=== PATIENT | female | born 1995 | race Caucasian/White ===

== ENCOUNTER 2020-06-28 10:14 | Outpatient (REF) | payer OTHER, SELFPAY ==
[2020-06-28 12:55] LABS: Syphilis Screen Nonreactive (Nonreactive)
[2020-06-28 13:12] LABS: CT PCR NOT DETECTED (Not Detect.); NG PCR NOT DETECTED (Not Detect.)
[2020-06-29 04:26] LABS: HIV AB/AG Nonreactive (Nonreactive); HIV Num 1 0.05 S/CO (0.00-0.99)
[2020-06-29 04:36] LABS: HBc Num1 0.06 S/CO (0.00-0.79); Hepatitis B Core Antibody Nonreactive (Nonreactive); ~HepC Num1 0.06 S/CO (0.00-0.79); ~Hepatitis C Antibody Nonreactive (Nonreactive)
[2020-06-30 15:51] LABS: Prolactin 54.5 ng/mL
[2020-06-30 17:27] LABS: DHEA Sulfate 180 mcg/dL (18-391)
[2020-07-03 11:43] LABS: Testosterone, Free 6.1 pg/mL (0.1-6.4); Testosterone, Total 66 ng/dL (2-45)
== END 2020-06-28 10:15 | disposition home or self-care (01) ==
LOC: HO.LAB 10:14
PROVIDERS: PCP Internal Medicine; Visit Provider Advanced Practice Midwife
DX: Z01.419 Encounter for gynecological examination (general) (routine) without abnormal findings (principal); L68.0 Hirsutism; N92.6 Irregular menstruation, unspecified; Z20.2 Contact with and (suspected) exposure to infections with a predominantly sexual mode of transmission
CPT/HCPCS: 36415; 82627; 83498; 84146; 84402; 84403; 84443; 86704; 86780; 86803; 87389; 87491; 87591

== ENCOUNTER 2020-07-03 17:36 | Emergency (ER) | payer OTHER, SELFPAY ==
--- NOTE | ~2020-07-03 | US_ITS ---
EXAMINATION: US OBSTETRICAL ULTRASOUND US OB TRANSVAGINAL, US OB <= 14 WEEKS FETUS, US APPENDIX CLINICAL INFORMATION: Cramping, spotting. Right upper quadrant pain. COMPARISON: None. LMP: Unknown. Gestational age by maternal dates is unknown. Estimated date of delivery by maternal dates is unknown. TECHNIQUE: Ultrasound of the maternal pelvis is performed using transabdominal and transvaginal transducers. Transvaginal imaging is performed due to inadequate visualization transabdominally. M-mode Doppler is also performed. Multiple transverse and longitudinal transabdominal sonograms of the right lower quadrant of the abdomen were obtained. FINDINGS: RIGHT LOWER QUADRANT ABDOMINAL ULTRASOUND: The appendix was not identified. No free fluid or fluid collection. No dilated loops of bowel. Normal peristalsing small bowel seen. OBSTETRICAL SONOGRAM There is an intrauterine containing a yolk sac but no embryo. Based on the mean sac diameter of 0.95 cm, the sonographic age is 5 weeks 4 days. The corresponding sonographic JEROME was not recorded MATERNAL ADNEXA: The right maternal ovary measures 3.2 x 2.4 x 2.5 cm. The right ovary is normal in appearance. The left maternal ovary measures 2.8 x 2.2 x 2.2 cm. The left ovary is normal in appearance There is no significant maternal adnexal mass. No maternal pelvic ascites. US/US OB <= 14 weeks fetus IMPRESSION: 1. The appendix is not identified. Appendicitis can neither be confirmed nor excluded. 2. Single intrauterine gestation with ultrasound gestational age of 5 weeks 4 days +/- 4 days. No embryo is seen. Consider short interval follow-up to confirm viability. 3. No maternal adnexal mass or pelvic ascites.
--- NOTE | ~2020-07-03 | US_ITS ---
EXAMINATION: US OBSTETRICAL ULTRASOUND US OB TRANSVAGINAL, US OB <= 14 WEEKS FETUS, US APPENDIX CLINICAL INFORMATION: Cramping, spotting. Right upper quadrant pain. COMPARISON: None. LMP: Unknown. Gestational age by maternal dates is unknown. Estimated date of delivery by maternal dates is unknown. TECHNIQUE: Ultrasound of the maternal pelvis is performed using transabdominal and transvaginal transducers. Transvaginal imaging is performed due to inadequate visualization transabdominally. M-mode Doppler is also performed. Multiple transverse and longitudinal transabdominal sonograms of the right lower quadrant of the abdomen were obtained. FINDINGS: RIGHT LOWER QUADRANT ABDOMINAL ULTRASOUND: The appendix was not identified. No free fluid or fluid collection. No dilated loops of bowel. Normal peristalsing small bowel seen. OBSTETRICAL SONOGRAM There is an intrauterine containing a yolk sac but no embryo. Based on the mean sac diameter of 0.95 cm, the sonographic age is 5 weeks 4 days. The corresponding sonographic JEROME was not recorded MATERNAL ADNEXA: The right maternal ovary measures 3.2 x 2.4 x 2.5 cm. The right ovary is normal in appearance. The left maternal ovary measures 2.8 x 2.2 x 2.2 cm. The left ovary is normal in appearance There is no significant maternal adnexal mass. No maternal pelvic ascites. US/US appendix IMPRESSION: 1. The appendix is not identified. Appendicitis can neither be confirmed nor excluded. 2. Single intrauterine gestation with ultrasound gestational age of 5 weeks 4 days +/- 4 days. No embryo is seen. Consider short interval follow-up to confirm viability. 3. No maternal adnexal mass or pelvic ascites.
--- NOTE | ~2020-07-03 | US_ITS ---
EXAMINATION: US OBSTETRICAL ULTRASOUND US OB TRANSVAGINAL, US OB <= 14 WEEKS FETUS, US APPENDIX CLINICAL INFORMATION: Cramping, spotting. Right upper quadrant pain. COMPARISON: None. LMP: Unknown. Gestational age by maternal dates is unknown. Estimated date of delivery by maternal dates is unknown. TECHNIQUE: Ultrasound of the maternal pelvis is performed using transabdominal and transvaginal transducers. Transvaginal imaging is performed due to inadequate visualization transabdominally. M-mode Doppler is also performed. Multiple transverse and longitudinal transabdominal sonograms of the right lower quadrant of the abdomen were obtained. FINDINGS: RIGHT LOWER QUADRANT ABDOMINAL ULTRASOUND: The appendix was not identified. No free fluid or fluid collection. No dilated loops of bowel. Normal peristalsing small bowel seen. OBSTETRICAL SONOGRAM There is an intrauterine containing a yolk sac but no embryo. Based on the mean sac diameter of 0.95 cm, the sonographic age is 5 weeks 4 days. The corresponding sonographic JEROME was not recorded MATERNAL ADNEXA: The right maternal ovary measures 3.2 x 2.4 x 2.5 cm. The right ovary is normal in appearance. The left maternal ovary measures 2.8 x 2.2 x 2.2 cm. The left ovary is normal in appearance There is no significant maternal adnexal mass. No maternal pelvic ascites. US/US OB transvaginal IMPRESSION: 1. The appendix is not identified. Appendicitis can neither be confirmed nor excluded. 2. Single intrauterine gestation with ultrasound gestational age of 5 weeks 4 days +/- 4 days. No embryo is seen. Consider short interval follow-up to confirm viability. 3. No maternal adnexal mass or pelvic ascites.
[2020-07-03 17:39] VITALS: BP 136/77; PULSE 79; RESP 18; TEMP 36.8; O2SAT 98; BMI 27.9
[2020-07-03 19:53] LABS: MANUAL DIFF FLAG NO
[2020-07-03 19:54] LABS: Basophils Percent Auto 0.3 % (0-2); Eosinophils Percent Auto 0.3 % (0-4); Hematocrit 39.8 % (37-47); Hemoglobin 13.2 g/dl (12.0-16.0); Imm Gran Abs Auto 0.02 X10*3/uL (0.00-0.03); Imm Gran Pct Auto 0.2 % (0.0-0.4); Lymphocytes Absolute Auto 1.6 X10*3/uL (1.2-4.9); Mean Corpuscular HGB Conc 33.2 g/dl (31.0-35.0); Mean Corpuscular Hemoglobin 29.9 pg (27.0-33.0); Monocytes Absolute Auto 0.4 X10*3/uL (0.1-1.2); Monocytes Percent Auto 3.9 % (2-11); Neutrophils Absolute Auto 7.9 X10*3/uL (2.0-8.3); Neutrophils Percent Auto 79.3 % (45-73); Platelet Count 244 X10*3/uL (160-400); Red Blood Count 4.42 X10*6/uL (4.20-5.50); Red Cell Distribution Width 12.7 % (11.0-16.0)
[2020-07-03 20:09] LABS: Glucose Urine UA NEG (NEG); Leukocyte Esterase Urine NEG (NEG); Nitrite Urine NEG (NEG); Specific Gravity - Urine 1.025 (1.005-1.025); Urine Blood TRACE (NEG); Urine Ketones 5 MG/DL (NEG); Urine Protein NEG (NEG-TRACE)
[2020-07-03 20:10] LABS: Appearance Urine CLEAR; Color Urine YELLOW
[2020-07-03 20:11] LABS: UPreg QC Valid YES; Urine Pregnancy POSITIVE (NEGATIVE)
[2020-07-03 20:16] LABS: Alanine Aminotransferase 10 U/L (0-31); Albumin Level 4.1 g/dL (3.5-5.0); Alkaline Phosphatase 52 U/L (39-117); Anion Gap 13 (12-20); Aspartate Amino Transferase 11 U/L (5-31); Bilirubin Total 0.6 mg/dL (0.0-1.0); Blood Urea Nitrogen 7 mg/dL (9-16); Calcium 8.6 mg/dL (8.4-10.2); Carbon Dioxide 21 mmol/L (22-29); Chloride 106 mmol/L (96-108); Creatinine Clr Calc Pharmacy 156.7; Estimated Glomerular Filt Rate > 60; Glucose Random 93 mg/dL (60-115); Potassium 3.9 mmol/L (3.3-5.1); Sodium 136 mmol/L (135-145); Total Protein 6.7 g/dL (6.5-8.0)
--- NOTE | 2020-07-03 20:21 | ED.GENADULT ---
HPI - General Adult General Chief complaint: Abdominal Pain Stated complaint: spotting Time Seen by Provider: 07/03/20 20:02 Source: patient Mode of arrival: ambulatory Limitations: no limitations History of Present Illness HPI narrative: Patient comes to emergency room complaining of vaginal spotting, right lower quadrant pain, new diagnosis of . Patient states that initially she noticed spotting couple of days ago, yesterday she started having suprapubic and right lower quadrant pain/cramping, diarrhea, an episode of vomiting. Today patient went to Urgent Care, she was informed that she is . Due to the spotting, she was instructed to come to the emergency room. Patient states she feels a constant discomfort in the right lower quadrant Related Data Previous Rx's Medication Instructions Recorded prenat.vits,missy,wza-uhuw-drice 1 tab PO DAILY #90 tab 07/03/20 Allergies Allergy/AdvReac Type Severity Reaction Status Date / Time No Known Allergies Allergy Verified 07/03/20 17:38 [No Known Allergies*] [facility] [place] Family History Family History Maternal Grandmother Ovarian cancer Family/Other Breast cancer Social History Social History Alcohol intake: never Smoking Status: Never smoker Advance Directives: No Advance Directives Information Provided: Yes Physical Exam Vital Signs: Vital Signs: Last Vital Signs Temp 98.2 F 07/03/20 17:39 Pulse 79 07/03/20 17:39 Resp 18 07/03/20 17:39 BP 136/77 07/03/20 17:39 Pulse Ox 98 07/03/20 17:39 Body Mass Index 27.9 Course Course Course Narrative: I discussed the ultrasound with the patient, she will need a repeat ultrasound, at this time, likely due to early maternal dates. The appendix was not visualized. Prior to arrival, I discussed with the patient that if she has any worsening right lower quadrant pain, any new symptoms, she needs to return to the emergency room, appendicitis is not excluded. However, on physical exam prior to discharge patient feels better, no longer having significant pain in the right lower quadrant, white blood cell count within normal limits. Patient is being referred to OBGYN, and is being started on vitamins. Medical Decision Making Lab Data Result diagrams: 07/03/20 22:18 07/03/20 19:49 Labs: Lab Results 07/03/20 07/03/20 07/03/20 Range/Units 19:49 19:49 19:49 WBC 10.0 (4.8-10.8) X10*3/uL RBC 4.42 (4.20-5.50) X10*6/uL Hgb 13.2 (12.0-16.0) g/dl Hct 39.8 (37-47) % MCV 90.0 (80-98) fL MCH 29.9 (27.0-33.0) pg MCHC 33.2 (31.0-35.0) g/dl RDW 12.7 (11.0-16.0) % Plt Count 244 (160-400) X10*3/uL MPV 10.0 (9.4-12.3) fL Immature Gran % (Auto) 0.2 (0.0-0.4) % Neut % (Auto) 79.3 H (45-73) % Lymph % (Auto) 16.0 L (20-40) % Miner % (Auto) 3.9 (2-11) % Eos % (Auto) 0.3 (0-4) % Baso % (Auto) 0.3 (0-2) % Lymph # (Auto) 1.6 (1.2-4.9) X10*3/uL Miner # (Auto) 0.4 (0.1-1.2) X10*3/uL Eos # (Auto) 0.0 (0.0-0.4) X10*3/uL Baso # (Auto) 0.0 (0.0-0.2) X10*3/uL Abs Immat Gran (auto) 0.02 (0.00-0.03) X10*3/uL Absolute Neuts (auto) 7.9 (2.0-8.3) X10*3/uL Absolute Nucleated RBC 0.000 (0.0-0.012) X10*3/uL Nucleated RBC % (auto) 0.0 (0.0-0.2) /100WBC Hold Blue Top SEE NOTE Sodium 136 (135-145) mmol/L Potassium 3.9 (3.3-5.1) mmol/L Chloride 106 (96-108) mmol/L Carbon Dioxide 21 L (22-29) mmol/L Anion Gap 13 (12-20) BUN 7 L (9-16) mg/dL Creatinine 0.57 (0.5-1.4) mg/dL Estim Creat Clear Calc 156.7 Estimated GFR > 60 Random Glucose 93 (60-115) mg/dL Calcium 8.6 (8.4-10.2) mg/dL Total Bilirubin 0.6 (0.0-1.0) mg/dL Direct Bilirubin 0.2 (0.0-0.5) mg/dL AST 11 (5-31) U/L ALT 10 (0-31) U/L Alkaline Phosphatase 52 (39-117) U/L Total Protein 6.7 (6.5-8.0) g/dL Albumin 4.1 (3.5-5.0) g/dL Beta HCG, Quant 8999 mIU/mL Urine Color Urine Appearance Urine pH (5.0-8.0) Ur Specific [place] (1.005-1.025) Urine Protein (NEG-TRACE) MG/DL Urine Glucose (UA) (NEG) MG/DL Urine Ketones (NEG) MG/DL Urine Blood (NEG) Urine Nitrite (NEG) Ur Leukocyte Esterase (NEG) Urine RBC (0) /HPF Urine WBC (0-4) /HPF Ur Squamous Epith Cells /LPF Urine Bacteria /LPF Urine Mucus /LPF Urine Test (NEGATIVE) Blood Type 07/03/20 07/03/20 07/03/20 Range/Units 19:55 19:55 22:18 WBC (4.8-10.8) X10*3/uL RBC (4.20-5.50) X10*6/uL Hgb (12.0-16.0) g/dl Hct (37-47) % MCV (80-98) fL MCH (27.0-33.0) pg MCHC (31.0-35.0) g/dl RDW (11.0-16.0) % Plt Count (160-400) X10*3/uL MPV (9.4-12.3) fL Immature Gran % (Auto) (0.0-0.4) % Neut % (Auto) (45-73) % Lymph % (Auto) (20-40) % Miner % (Auto) (2-11) % Eos % (Auto) (0-4) % Baso % (Auto) (0-2) % Lymph # (Auto) (1.2-4.9) X10*3/uL Miner # (Auto) (0.1-1.2) X10*3/uL Eos # (Auto) (0.0-0.4) X10*3/uL Baso # (Auto) (0.0-0.2) X10*3/uL Abs Immat Gran (auto) (0.00-0.03) X10*3/uL Absolute Neuts (auto) (2.0-8.3) X10*3/uL Absolute Nucleated RBC (0.0-0.012) X10*3/uL Nucleated RBC % (auto) (0.0-0.2) /100WBC Hold Blue Top Sodium Cancelled (135-145) mmol/L Potassium Cancelled (3.3-5.1) mmol/L Chloride Cancelled (96-108) mmol/L Carbon Dioxide Cancelled (22-29) mmol/L Anion Gap Cancelled (12-20) BUN Cancelled (9-16) mg/dL Creatinine Cancelled (0.5-1.4) mg/dL Estim Creat Clear Calc Cancelled Estimated GFR Cancelled Random Glucose Cancelled (60-115) mg/dL Calcium Cancelled (8.4-10.2) mg/dL Total Bilirubin Cancelled (0.0-1.0) mg/dL Direct Bilirubin Cancelled (0.0-0.5) mg/dL AST Cancelled (5-31) U/L ALT Cancelled (0-31) U/L Alkaline Phosphatase Cancelled (39-117) U/L Total Protein Cancelled (6.5-8.0) g/dL Albumin Cancelled (3.5-5.0) g/dL Beta HCG, Quant Cancelled mIU/mL Urine Color YELLOW Urine Appearance CLEAR Urine pH 6.0 (5.0-8.0) Ur Specific [place] 1.025 (1.005-1.025) Urine Protein NEG (NEG-TRACE) MG/DL Urine Glucose (UA) NEG (NEG) MG/DL Urine Ketones 5 (NEG) MG/DL Urine Blood TRACE (NEG) Urine Nitrite NEG (NEG) Ur Leukocyte Esterase NEG (NEG) Urine RBC 0-2 (0) /HPF Urine WBC 1-4 (0-4) /HPF Ur Squamous Epith Cells TRACE /LPF Urine Bacteria NONE /LPF Urine Mucus 1+ /LPF Urine Test POSITIVE H (NEGATIVE) Blood Type 07/03/20 07/03/20 Range/Units 22:18 22:18 WBC 10.0 (4.8-10.8) X10*3/uL RBC 4.39 (4.20-5.50) X10*6/uL Hgb 13.1 (12.0-16.0) g/dl Hct 39.3 (37-47) % MCV 89.5 (80-98) fL MCH 29.8 (27.0-33.0) pg MCHC 33.3 (31.0-35.0) g/dl RDW 12.7 (11.0-16.0) % Plt Count 248 (160-400) X10*3/uL MPV 10.1 (9.4-12.3) fL Immature Gran % (Auto) 0.3 (0.0-0.4) % Neut % (Auto) 76.6 H (45-73) % Lymph % (Auto) 18.0 L (20-40) % Miner % (Auto) 4.3 (2-11) % Eos % (Auto) 0.4 (0-4) % Baso % (Auto) 0.4 (0-2) % Lymph # (Auto) 1.8 (1.2-4.9) X10*3/uL Miner # (Auto) 0.4 (0.1-1.2) X10*3/uL Eos # (Auto) 0.0 (0.0-0.4) X10*3/uL Baso # (Auto) 0.0 (0.0-0.2) X10*3/uL Abs Immat Gran (auto) 0.03 (0.00-0.03) X10*3/uL Absolute Neuts (auto) 7.6 (2.0-8.3) X10*3/uL Absolute Nucleated RBC 0.000 (0.0-0.012) X10*3/uL Nucleated RBC % (auto) 0.0 (0.0-0.2) /100WBC Hold Blue Top Sodium (135-145) mmol/L Potassium (3.3-5.1) mmol/L Chloride (96-108) mmol/L Carbon Dioxide (22-29) mmol/L Anion Gap (12-20) BUN (9-16) mg/dL Creatinine (0.5-1.4) mg/dL Estim Creat Clear Calc Estimated GFR Random Glucose (60-115) mg/dL Calcium (8.4-10.2) mg/dL Total Bilirubin (0.0-1.0) mg/dL Direct Bilirubin (0.0-0.5) mg/dL AST (5-31) U/L ALT (0-31) U/L Alkaline Phosphatase (39-117) U/L Total Protein (6.5-8.0) g/dL Albumin (3.5-5.0) g/dL Beta HCG, Quant mIU/mL Urine Color Urine Appearance Urine pH (5.0-8.0) Ur Specific [place] (1.005-1.025) Urine Protein (NEG-TRACE) MG/DL Urine Glucose (UA) (NEG) MG/DL Urine Ketones (NEG) MG/DL Urine Blood (NEG) Urine Nitrite (NEG) Ur Leukocyte Esterase (NEG) Urine RBC (0) /HPF Urine WBC (0-4) /HPF Ur Squamous Epith Cells /LPF Urine Bacteria /LPF Urine Mucus /LPF Urine Test (NEGATIVE) Blood Type O Positive Imaging Data US - abdomen: Radiologist's impression: IMPRESSION: 1. The appendix is not identified. Appendicitis can neither be confirmed nor excluded. 2. Single intrauterine gestation with ultrasound gestational age of 5 weeks 4 days +/- 4 days. No embryo is seen. Consider short interval follow-up to confirm viability. 3. No maternal adnexal mass or pelvic ascites. Discharge Plan Discharge Clinical Impression: Qualifiers: Weeks of gestation: less than 8 weeks Qualified Code(s): Z3A.01 - Less than 8 weeks gestation of Patient Disposition: Home, Self-Care Instructions: Abdominal Pain in (ED) Additional Instructions: If you have any worsening abdominal pain, please return to the emergency room. Please follow-up with your primary care physician tomorrow. If you have any worsening or new symptoms, please return to the emergency room or call 911 Prescriptions: New prenat.vits,missy,zpu-jeaf-jsjuw Tablet 1 tab PO DAILY Qty: 90 RF: 2 Referrals: Dereck Muse MD [Physician] - 2 days Stand Alone Forms: Work/School Release
[2020-07-03 20:26] LABS: RBC Urine 0-2 /HPF (0); Squamous Epithelial Cell Urine TRACE /LPF
[2020-07-03 20:27] LABS: Mucus Urine 1+ /LPF
[2020-07-03 22:00] VITALS: BP 122/78; PULSE 73; RESP 16; O2SAT 99
[2020-07-03 22:22] LABS: MANUAL DIFF FLAG NO
[2020-07-03 22:24] LABS: Basophils Percent Auto 0.4 % (0-2); Eosinophils Percent Auto 0.4 % (0-4); Hematocrit 39.3 % (37-47); Hemoglobin 13.1 g/dl (12.0-16.0); Imm Gran Abs Auto 0.03 X10*3/uL (0.00-0.03); Imm Gran Pct Auto 0.3 % (0.0-0.4); Lymphocytes Absolute Auto 1.8 X10*3/uL (1.2-4.9); Mean Corpuscular HGB Conc 33.3 g/dl (31.0-35.0); Mean Corpuscular Hemoglobin 29.8 pg (27.0-33.0); Mean Corpuscular Volume 89.5 fL (80-98); Mean Platelet Volume 10.1 fL (9.4-12.3); Monocytes Absolute Auto 0.4 X10*3/uL (0.1-1.2); Monocytes Percent Auto 4.3 % (2-11); Neutrophils Absolute Auto 7.6 X10*3/uL (2.0-8.3); Neutrophils Percent Auto 76.6 % (45-73); Platelet Count 248 X10*3/uL (160-400); Red Blood Count 4.39 X10*6/uL (4.20-5.50); Red Cell Distribution Width 12.7 % (11.0-16.0)
[2020-07-03 22:53] LABS: Bilirubin Direct 0.2 mg/dL (0.0-0.5)
[2020-07-03 22:59] LABS: HCG Quantitative 8999 mIU/mL
== END 2020-07-03 23:55 | disposition home or self-care (01) ==
PROVIDERS: Emergency Provider Emergency Medicine; PCP Internal Medicine
DX: O26.91 Pregnancy related conditions, unspecified, first trimester (principal); R10.31 Right lower quadrant pain; Z3A.08 8 weeks gestation of pregnancy
CPT/HCPCS: 36415; 76705; 76801; 76817; 80053; 81001; 81025; 82248; 84702; 85025; 86900; 86901; 99284

== ENCOUNTER 2020-07-04 14:35 | Emergency (ER) | payer OTHER, SELFPAY ==
[2020-07-04 14:38] VITALS: BP 123/71; PULSE 74; RESP 16; TEMP 35.7; O2SAT 99; BMI 27.9
--- NOTE | 2020-07-04 17:06 | ED_ITS ---
HPI - General Adult General Chief complaint: Nausea/Vomiting/Diarrhea Stated complaint: vomiting Time Seen by Provider: 07/04/20 16:50 Source: patient Mode of arrival: ambulatory Limitations: no limitations History of Present Illness HPI narrative: 25-year-old female G1, P0, 5 weeks 5 days with single intrauterine (ultrasound done on 07/03/2020 -1 day prior to evaluation) who presents emergency department for evaluation of abdominal pain, nausea, vomiting, weakness and near syncope. The patient states that she has not been feeling well for approximately 3-4 days. She states that she has had loose, watery, diarrheal stools, 10 episodes per day with no blood in the diarrhea. She states that she is having epigastric pain which is constant and is 8/10, she describes as a burning sensation it does move into her throat. She states that she has been vomiting constantly and is not able to eat or drink. Today, she was taking a shower, she felt lightheaded and dizzy as if she was going to pass out. The patient denied fever, chills, chest pain, shortness of breath, dyspnea on exertion, frequency, urgency or dysuria. She was seen in the emergency department yesterday for similar symptoms and she also had vaginal spotting. She was found to be with a quantitative beta-hCG of 8999, ultrasound revealed a single intrauterine , 5 weeks and 4 days. Patient states that she was discharged home and advised to take vitamins and Tylenol. She was not given an antiemetic. Related Data Previous Rx's Medication Instructions Recorded prenat.vits,missy,rfd-kqvw-jljzd 1 tab PO DAILY #90 tab 07/03/20 cimetidine 800 mg PO BID #60 tab 07/04/20 metoclopramide HCl [Reglan] 10 mg PO Q6H PRN #20 tab 07/04/20 Allergies Allergy/AdvReac Type Severity Reaction Status Date / Time No Known Allergies Allergy Verified 07/03/20 17:38 [No Known Allergies*] Review of Systems Review of Systems: Yes all other systems are reviewed and are negative [facility] Past Medical History [facility] Narrative: The patient has no significant past medical history, she has had no previous surgeries, she has not been before this , she denies tobacco, alcohol and drug use. Family History Family History Maternal Grandmother Ovarian cancer Family/Other Breast cancer Social History Social History Alcohol intake: never Smoking Status: Never smoker Use of substances other than those prescribed or required for medical reasons: No Advance Directives: No Advance Directives Information Provided: Yes Physical Exam Vital Signs: Vital Signs: Last Vital Signs Temp 97.8 F 07/04/20 19:09 Pulse 79 07/04/20 19:09 Resp 16 07/04/20 19:09 BP 114/64 07/04/20 19:09 Pulse Ox 99 07/04/20 19:09 Body Mass Index 27.9 Const: General: cooperative and healthy appearing Orientation/consciousness: oriented to person and oriented to place Limitations: no limitations HENMT: Head: Yes normal to inspection, Yes normocephalic and Yes atraumatic Ears: external ears normal General nose exam: Normal external nose present Face and sinus: Yes normal facial exam Mouth: Normal oral and palatal mucosa present Throat: Yes posterior oropharynx normal Eyes: Periorbital: periorbital findings normal Eyelids: Yes eyelids normal Conjunctivae: conjunctivae normal Sclerae: sclerae normal Corneas: corneas normal Pupils: Equal, round and reactive pupils present Direct Ophthalmoscopy: normal light reflex Neck: Neck: Yes full ROM, Yes no lymphadenopathy, Yes no meningeal signs, Yes trachea midline and Yes supple Chest: Chest palpation & inspection: normal inspection of the chest and normal palpation of entire chest wall Resp: Effort & Inspection: normal respiratory effort and able to speak in complete sentences Auscultation: clear to auscultation bilaterally Cardio: Rate: regular rate Rhythm: regular rhythm Heart sounds: S1 normal heart sound present, S2 normal heart sound present and no murmurs GI: Inspection: Yes normal to inspection Palpation (GI): Soft to palpation, Tenderness to palpation present (GI) in the epigastrum (Moderate) and suprapubicly (Mild); not in the LLQ and not in the RLQ, no guarding, not rigid and No hepatosplenomegaly present : General: Yes no CVA tenderness Back/Spine/Pelvis: Back: no CVA tenderness Cervical Spine: normal cervical lordosis Thoracic/Lumbar Spine: thoracic and lumbar spine normal to inspection Skin: Lesions: no lesions Rashes: no rashes Wounds: no wounds Neuro: General: oriented to person, oriented to place and no meningeal signs Cranial nerves: Yes CN's II-XII intact bilaterally and Yes Equal, round and reactive pupils present Cognition (Neuro): normal cognition Motor exam (neuro): 5/5 motor strength present throughout Extrem: General: Yes normal to inspection and Yes full ROM Psych: Appearance: well kempt Mental Status: mental status grossly normal Speech and movement: Normal speech and movement present Affect: normal affect Attitude: cooperative Thought process: Normal thought process present Thought content: Normal thought content present Course Course Course Narrative: 25-year-old female, G1, P0, 5 weeks 5 days presents emergency department for evaluation of abdominal pain, nausea, vomiting and diarrhea. Physical examination revealed normal vital signs, she had epigastric and suprapubic tenderness. I did order laboratory evaluation includes CBC, CMP, lipase, urinalysis. She was ordered to get normal saline IV x2 L . I ordered to Reglan 10 mg IV and Benadryl 50 mg IV for her nausea and vomiting. 8: Patient is feeling significantly better after the above treatment. She was able to drink norma lonnie and crackers. Patient was discharged home with a prescription for Reglan 10 mg every 6-8 hours as needed for nausea and vomiting, she was advised to take Benadryl 25 mg with Reglan. She was also started on submitted in 800 mg twice a day for 1 month for gastritis/esophagitis. She was given verbal and printed instructions and advised to follow-up with her OBGYN in 2 days for re-evaluation. 2024: The patient's laboratory evaluation was unremarkable. Medical Decision Making Lab Data Result diagrams: 07/04/20 17:43 07/04/20 17:43 Labs: Lab Results 07/04/20 07/04/20 Range/Units 17:43 17:43 WBC 10.2 (4.8-10.8) X10*3/uL RBC 4.50 (4.20-5.50) X10*6/uL Hgb 13.3 (12.0-16.0) g/dl Hct 40.2 (37-47) % MCV 89.3 (80-98) fL MCH 29.6 (27.0-33.0) pg MCHC 33.1 (31.0-35.0) g/dl RDW 12.6 (11.0-16.0) % Plt Count 260 (160-400) X10*3/uL MPV 10.6 (9.4-12.3) fL Immature Gran % (Auto) 0.3 (0.0-0.4) % Neut % (Auto) 87.4 H (45-73) % Lymph % (Auto) 9.7 L (20-40) % [place] % (Auto) 2.3 (2-11) % Eos % (Auto) 0.1 (0-4) % Baso % (Auto) 0.2 (0-2) % Lymph # (Auto) 1.0 L (1.2-4.9) X10*3/uL [place] # (Auto) 0.2 (0.1-1.2) X10*3/uL Eos # (Auto) 0.0 (0.0-0.4) X10*3/uL Baso # (Auto) 0.0 (0.0-0.2) X10*3/uL Abs Immat Gran (auto) 0.03 (0.00-0.03) X10*3/uL Absolute Neuts (auto) 8.9 H (2.0-8.3) X10*3/uL Absolute Nucleated RBC 0.000 (0.0-0.012) X10*3/uL Nucleated RBC % (auto) 0.0 (0.0-0.2) /100WBC Sodium 137 (135-145) mmol/L Potassium 3.9 (3.3-5.1) mmol/L Chloride 106 (96-108) mmol/L Carbon Dioxide 19 L (22-29) mmol/L Anion Gap 16 (12-20) BUN 8 L (9-16) mg/dL Creatinine 0.57 (0.5-1.4) mg/dL Estim Creat Clear Calc 156.7 Estimated GFR > 60 Random Glucose 90 (60-115) mg/dL Calcium 8.7 (8.4-10.2) mg/dL Total Bilirubin 0.8 (0.0-1.0) mg/dL AST 13 (5-31) U/L ALT 11 (0-31) U/L Alkaline Phosphatase 55 (39-117) U/L Total Protein 6.9 (6.5-8.0) g/dL Albumin 4.3 (3.5-5.0) g/dL Lipase 13 (8-78) U/L Discharge Plan Discharge Clinical Impression: Vomiting during late , Acute dehydration, First trimester Gastritis Qualifiers: Gastritis type: unspecified gastritis Chronicity: acute Gastritis bleeding: without bleeding Qualified Code(s): K29.00 - Acute gastritis without bleeding Diarrhea Qualifiers: Diarrhea type: unspecified type Qualified Code(s): R19.7 - Diarrhea, unspecified Patient Disposition: Home, Self-Care Instructions: Gastritis (ED), Acute Nausea and Vomiting (ED) Additional Instructions: Take Reglan 10 mg pills, 1 pill every 6-8 hours as needed for nausea and vomiting. When you take Reglan also take Benadryl 25 mg pills, 1 pill. Take Tagamet (cimetidine) 800 mg pills, 1 pill twice a day for 1 month. This medication reduces the amount of acid in your stomach and will help with gastritis. Follow-up with your [employer] in 2 days. Please return to the emergency department if your symptoms get worse or if you develop any symptoms that are concerning to you. Prescriptions: New metoclopramide HCl [Reglan] 10 mg tablet 10 mg PO Q6H PRN (Reason: nausea and vomiting) Qty: 20 RF: 0 cimetidine 800 mg tablet 800 mg PO BID Qty: 60 RF: 0 No Action prenat.vits,missy,wqe-xmun-wrjmj Tablet 1 tab PO DAILY Qty: 90 RF: 2 Stand Alone Forms: Work/School Release Interventions: ED Discharge Assessment Last Done: 07/04/20 19:18 Discharge Date/Time: 07/04/20 19:30
[2020-07-04] MEDS: 0.9 % Sodium Chloride 1,000 ML 999 ML IV ×2 (17:51)
[2020-07-04] MEDS: diphenhydrAMINE HCL 50 MG/ML VIAL IVPUSH (17:51)
[2020-07-04] MEDS: Metoclopramide HCl 10 MG/2 ML VIAL IVPUSH (17:51)
[2020-07-04 17:54] VITALS: BP 116/65; PULSE 84; RESP 18; TEMP 36.6; O2SAT 99
--- NOTE | 2020-07-04 17:58 | PC.NURSE ---
patient a&ox3, iv inserted, labs drawn, vitals obtained vss, boyfriend at bedside, pt medicated per order, will continue to monitor.
[2020-07-04 18:44] LABS: MANUAL DIFF FLAG NO
[2020-07-04 18:46] LABS: Basophils Percent Auto 0.2 % (0-2); Eosinophils Percent Auto 0.1 % (0-4); Hematocrit 40.2 % (37-47); Hemoglobin 13.3 g/dl (12.0-16.0); Imm Gran Abs Auto 0.03 X10*3/uL (0.00-0.03); Imm Gran Pct Auto 0.3 % (0.0-0.4); Lymphocytes Percent Auto 9.7 % (20-40); Mean Corpuscular HGB Conc 33.1 g/dl (31.0-35.0); Mean Corpuscular Hemoglobin 29.6 pg (27.0-33.0); Mean Corpuscular Volume 89.3 fL (80-98); Mean Platelet Volume 10.6 fL (9.4-12.3); Monocytes Absolute Auto 0.2 X10*3/uL (0.1-1.2); Monocytes Percent Auto 2.3 % (2-11); Neutrophils Absolute Auto 8.9 X10*3/uL (2.0-8.3); Neutrophils Percent Auto 87.4 % (45-73); Platelet Count 260 X10*3/uL (160-400); Red Cell Distribution Width 12.6 % (11.0-16.0); White Blood Count 10.2 X10*3/uL (4.8-10.8)
[2020-07-04 19:09] VITALS: BP 114/64; PULSE 79; RESP 16; TEMP 36.6; O2SAT 99
[2020-07-04 20:02] LABS: Alanine Aminotransferase 11 U/L (0-31); Albumin Level 4.3 g/dL (3.5-5.0); Alkaline Phosphatase 55 U/L (39-117); Anion Gap 16 (12-20); Aspartate Amino Transferase 13 U/L (5-31); Bilirubin Total 0.8 mg/dL (0.0-1.0); Blood Urea Nitrogen 8 mg/dL (9-16); Calcium 8.7 mg/dL (8.4-10.2); Carbon Dioxide 19 mmol/L (22-29); Chloride 106 mmol/L (96-108); Creatinine Clr Calc Pharmacy 156.7; Estimated Glomerular Filt Rate > 60; Glucose Random 90 mg/dL (60-115); Lipase 13 U/L (8-78); Potassium 3.9 mmol/L (3.3-5.1); Sodium 137 mmol/L (135-145); Total Protein 6.9 g/dL (6.5-8.0)
== END 2020-07-04 19:30 | disposition home or self-care (01) ==
PROVIDERS: Emergency Provider Emergency Medicine Emergency Medical Services; PCP Internal Medicine
DX: O99.611 Diseases of the digestive system complicating pregnancy, first trimester (principal); K29.00 Acute gastritis without bleeding; O26.891 Other specified pregnancy related conditions, first trimester; R19.7 Diarrhea, unspecified; Z3A.01 Less than 8 weeks gestation of pregnancy
CPT/HCPCS: 36415; 80053; 83690; 85025; 96361; 96374; 96375; 99284; J1200; J2765

== ENCOUNTER 2020-07-17 14:52 | Emergency (ER) | payer OTHER, SELFPAY ==
[2020-07-17 14:54] VITALS: BP 141/62; PULSE 72; RESP 18; TEMP 36.8; O2SAT 98; BMI 26.2
[2020-07-17 15:38] VITALS: BP 102/58; PULSE 68; RESP 18; TEMP 36.5; O2SAT 99
[2020-07-17 15:51] LABS: MANUAL DIFF FLAG NO
[2020-07-17 15:52] LABS: Basophils Percent Auto 0.4 % (0-2); Eosinophils Absolute Auto 0.1 X10*3/uL (0.0-0.4); Eosinophils Percent Auto 0.6 % (0-4); Hematocrit 38.4 % (37-47); Hemoglobin 12.9 g/dl (12.0-16.0); Imm Gran Abs Auto 0.04 X10*3/uL (0.00-0.03); Imm Gran Pct Auto 0.4 % (0.0-0.4); Lymphocytes Absolute Auto 1.7 X10*3/uL (1.2-4.9); Lymphocytes Percent Auto 16.6 % (20-40); Mean Corpuscular HGB Conc 33.6 g/dl (31.0-35.0); Mean Corpuscular Hemoglobin 29.9 pg (27.0-33.0); Mean Corpuscular Volume 88.9 fL (80-98); Mean Platelet Volume 9.7 fL (9.4-12.3); Monocytes Absolute Auto 0.5 X10*3/uL (0.1-1.2); Monocytes Percent Auto 4.7 % (2-11); Neutrophils Percent Auto 77.3 % (45-73); Platelet Count 262 X10*3/uL (160-400); Red Blood Count 4.32 X10*6/uL (4.20-5.50); White Blood Count 10.3 X10*3/uL (4.8-10.8)
[2020-07-17 16:00] VITALS: RESP 18
--- NOTE | 2020-07-17 16:07 | ED.PREGNANCY ---
HPI - General Chief complaint: Abdominal Pain Stated complaint: N/v - 7.5 wks preg Time Seen by Provider: 07/17/20 16:03 Source: patient Limitations: no limitations History of Present Illness HPI Narrative: 25-year-old female who is 7 have weeks gestation with her 1st , planned she states she has had intermittent morning sickness for several weeks ago and she was given nausea medicine previously she ran out and she has been having more morning sickness for past several days and today she can not keep anything down and also ran out of her nausea medicine. No abdominal pain/cramping, vaginal discharge or bleeding. No upper respiratory symptoms/travel or contact with me with COVID. ROGER Complaint: other (Nausea/vomiting) Onset (ago): day(s) Pain Consistency: intermittent Severity: moderate Relieving factors: none Exacerbating factors: medication Associated symptoms: denies other symptoms Vaginal discharge: none Vaginal bleeding: none Related Data Previous Rx's Medication Instructions Recorded prenat.vits,missy,[id number]-[id number] 1 tab PO DAILY #90 tab 07/03/20 cimetidine 800 mg PO BID #60 tab 07/04/20 metoclopramide HCl [Reglan] 10 mg PO Q6H PRN #20 tab 07/04/20 ondansetron 4 mg disintegrating 4 mg PO Q8H PRN 30 Days #90 tab 07/16/20 tablet Allergies Allergy/AdvReac Type Severity Reaction Status Date / Time No Known Allergies Allergy Verified 07/17/20 14:54 [No Known Allergies*] Review of Systems Review of Systems: Constitutional: No Weight loss, No Fever, No Chills, No Night Sweats, No Fatigue, No Malaise ENT/Mouth: No Hearing loss, No Ear Pain, No Nasal Congestion, No Sinus Pain, No Hoarseness, No sore throat, No Rhinorrhea, No Swallowing Difficulty Eyes: No Eye Pain, No Swelling, No Redness, No Foreign Body, No Discharge, No Vision Changes Cardiovascular: No Chest Pain, No SOB, No Dyspnea on Exertion, No Orthopnea, No Edema, No Palpitations Respiratory: No Cough, No Sputum, No Wheezing, No Dyspnea Gastrointestinal: + Nausea, + Vomiting, No Diarrhea, No Constipation, No abdominal Pain, No Hematochezia, No Melena Genitourinary: No Dysuria, No Urinary Frequency, No Hematuria, No Urinary Incontinence, No Urgency, No Flank Pain, No Urinary Flow Changes, No Hesitancy Musculoskeletal: No joint pain, No Myalgias, No Joint Swelling Skin: No Skin Lesions, No rash Neuro: No Weakness, No Numbness, No Paresthesias, No Loss of Consciousness, No Dizziness, No Headache Psych: No Social Issues Heme/Lymph: No Bruising, No Bleeding,No Lymphadenopathy Endocrine: No Polyuria, No Polydipsia, No Temperature Intolerance Yes all other systems are reviewed and are negative [facility] Family History Family History Maternal Grandmother Ovarian cancer Family/Other Breast cancer Social History Social History Alcohol intake: never Smoking Status: Never smoker Use of substances other than those prescribed or required for medical reasons: No Advance Directives: No Advance Directives Information Provided: No Physical Exam Vital Signs: Vital Signs: Last Vital Signs Temp 97.9 F 07/17/20 17:50 Pulse 75 07/17/20 17:50 Resp 18 07/17/20 17:50 BP 99/53 L 07/17/20 17:50 Pulse Ox 98 07/17/20 17:50 Body Mass Index 26.2 Reviewed Const: General: cooperative and healthy appearing; No acute distress or intoxicated appearing Nutritional Appearance: average body habitus Orientation/consciousness: patient oriented x3 HENMT: Head: Yes normal to inspection Ears: hearing grossly normal bilaterally Eyes: General: appearance normal, both eyes and all related structures Visual Cruz: normal visual cruz by confrontation Neck: Neck: Yes normal visual inspection, No positive Brudzinski's sign, No positive Kernig's sign and No tender Thyroid: Thyroid normal Chest: Chest palpation & inspection: normal inspection of the chest Resp: Effort & Inspection: normal respiratory effort Auscultation: clear to auscultation bilaterally Cardio: Jugular venous distension: no JVD Rhythm: regular rhythm Heart sounds: S1 normal heart sound present and S2 normal heart sound present GI: Inspection: Yes normal to inspection Palpation (GI): Soft to palpation Percussion: Yes normal to percussion Auscultation: normal bowel sounds : General: Yes no CVA tenderness Back/Spine/Pelvis: Back: no CVA tenderness Skin: General skin exam: no rashes or lesions noted Neuro: General: patient oriented x3 Extrem: General: Yes normal to inspection Course Course Course Narrative: AP of 25-year-old female who is 7 and half weeks gestation presenting with hyperemesis gravidarum otherwise no abdominal pain, related complaints. Given IV fluids and dose of Reglan did very well. States nausea symptoms resolved tolerating p.o. intake well. Labs overall stable UA with 5 ketones much better than previous. Educated on dietary regimen for hyperemesis gravidarum, use of antiemetic and follow-up with OB. She feels comfortable plan she is requesting discharge. Has OB follow-up scheduled. Stable for discharge. MDM - OB/Uterine Contractions Lab Data Result diagrams: 07/17/20 15:46 07/17/20 15:46 Labs: Lab Results 07/17/20 07/17/20 07/17/20 Range/Units 15:46 15:46 15:54 WBC 10.3 (4.8-10.8) X10*3/uL RBC 4.32 (4.20-5.50) X10*6/uL Hgb 12.9 (12.0-16.0) g/dl Hct 38.4 (37-47) % MCV 88.9 (80-98) fL MCH 29.9 (27.0-33.0) pg MCHC 33.6 (31.0-35.0) g/dl RDW 12.0 (11.0-16.0) % Plt Count 262 (160-400) X10*3/uL MPV 9.7 (9.4-12.3) fL Immature Gran % (Auto) 0.4 (0.0-0.4) % Neut % (Auto) 77.3 H (45-73) % Lymph % (Auto) 16.6 L (20-40) % Walsh % (Auto) 4.7 (2-11) % Eos % (Auto) 0.6 (0-4) % Baso % (Auto) 0.4 (0-2) % Lymph # (Auto) 1.7 (1.2-4.9) X10*3/uL Walsh # (Auto) 0.5 (0.1-1.2) X10*3/uL Eos # (Auto) 0.1 (0.0-0.4) X10*3/uL Baso # (Auto) 0.0 (0.0-0.2) X10*3/uL Abs Immat Gran (auto) 0.04 H (0.00-0.03) X10*3/uL Absolute Neuts (auto) 8.0 (2.0-8.3) X10*3/uL Absolute Nucleated RBC 0.000 (0.0-0.012) X10*3/uL Nucleated RBC % (auto) 0.0 (0.0-0.2) /100WBC Sodium 136 (135-145) mmol/L Potassium 3.9 (3.3-5.1) mmol/L Chloride 105 (96-108) mmol/L Carbon Dioxide 22 (22-29) mmol/L Anion Gap 13 (12-20) BUN 7 L (9-16) mg/dL Creatinine 0.60 (0.5-1.4) mg/dL Estim Creat Clear Calc 144.7 Estimated GFR > 60 Random Glucose 85 (60-115) mg/dL Calcium 8.9 (8.4-10.2) mg/dL Total Bilirubin 0.3 (0.0-1.0) mg/dL Direct Bilirubin 0.2 (0.0-0.5) mg/dL AST 12 (5-31) U/L ALT 11 (0-31) U/L Alkaline Phosphatase 49 (39-117) U/L Total Protein 6.6 (6.5-8.0) g/dL Albumin 4.1 (3.5-5.0) g/dL Beta HCG, Quant 09779 mIU/mL Urine Test POSITIVE H (NEGATIVE) Discharge Plan Discharge Clinical Impression: Hyperemesis gravidarum Patient Disposition: Home, Self-Care Instructions: Hyperemesis Gravidarum (ED) Additional Instructions: Follow dietary regimen as discussed Take your antiemetic medications discussed Return if any concerns or worsening symptoms otherwise follow-up with the OBGYN team as planned Thank you Prescriptions: No Action ondansetron 4 mg tablet,disintegrating 4 mg PO Q8H PRN (Reason: nausea and vomiting) 30 Days Qty: 90 RF: 0 prenat.vits,missy,dqg-tlpd-frxjx Tablet 1 tab PO DAILY Qty: 90 RF: 2 metoclopramide HCl [Reglan] 10 mg tablet 10 mg PO Q6H PRN (Reason: nausea and vomiting) Qty: 20 RF: 0 cimetidine 800 mg tablet 800 mg PO BID Qty: 60 RF: 0 Referrals: Sarika Huff MD [Primary Care Provider] - 1 week Dereck Muse MD [Physician] - 3 days Stand Alone Forms: Work/School Release
[2020-07-17 16:08] LABS: UPreg QC Valid YES; Urine Pregnancy POSITIVE (NEGATIVE)
[2020-07-17] MEDS: 0.9 % Sodium Chloride 1,000 ML 999 ML IV (16:10)
[2020-07-17 16:18] LABS: Alanine Aminotransferase 11 U/L (0-31); Albumin Level 4.1 g/dL (3.5-5.0); Alkaline Phosphatase 49 U/L (39-117); Anion Gap 13 (12-20); Aspartate Amino Transferase 12 U/L (5-31); Bilirubin Direct 0.2 mg/dL (0.0-0.5); Bilirubin Total 0.3 mg/dL (0.0-1.0); Blood Urea Nitrogen 7 mg/dL (9-16); Calcium 8.9 mg/dL (8.4-10.2); Carbon Dioxide 22 mmol/L (22-29); Chloride 105 mmol/L (96-108); Creatinine Clr Calc Pharmacy 144.7; Estimated Glomerular Filt Rate > 60; Glucose Random 85 mg/dL (60-115); Potassium 3.9 mmol/L (3.3-5.1); Sodium 136 mmol/L (135-145); Total Protein 6.6 g/dL (6.5-8.0)
[2020-07-17] MEDS: Metoclopramide HCl 10 MG/2 ML VIAL IVPUSH (16:22)
[2020-07-17 17:04] LABS: HCG Quantitative 50900 mIU/mL
--- NOTE | 2020-07-17 17:16 | PC.NURSE ---
pt reports feeling better post reglan. sleeping at this time. skinp/w/d
[2020-07-17 17:50] VITALS: BP 99/53; PULSE 75; RESP 18; TEMP 36.6; O2SAT 98
== END 2020-07-17 18:21 | disposition home or self-care (01) ==
PROVIDERS: Emergency Provider Internal Medicine; PCP Internal Medicine
DX: O21.0 Mild hyperemesis gravidarum (principal); Z3A.01 Less than 8 weeks gestation of pregnancy
CPT/HCPCS: 36415; 80053; 80076; 81025; 82248; 84702; 85025; 96361; 96374; 99284; J2765

== ENCOUNTER → 2020-07-19 10:03 | Outpatient (BNVA) | payer OTHER, SELFPAY | PROVIDERS: Visit Provider Advanced Practice Midwife | DX: Z34.90 Encounter for supervision of normal pregnancy, unspecified, unspecified trimester (principal) | CPT/HCPCS: 81003; 99212 ==

== ENCOUNTER 2020-07-23 10:02 | Outpatient (REF) | payer OTHER, SELFPAY ==
--- NOTE | ~2020-07-23 | US_ITS ---
EXAMINATION: OBSTETRICAL ULTRASOUND, FIRST TRIMESTER HISTORY: 25-year-old with unknown LMP Viability LMP: Unknown COMPARISON: 07/03/2020 TECHNIQUE: Real time transabdominal imaging with color and M-mode Doppler. FINDINGS: A single, live IUP CRL of 21.1 mm c/w 8.6wks is noted. Heart Rate: 170 beats per minute. Both maternal ovaries are seen and appear normal. GESTATIONAL AGE: 1. GA from LMP: N/A wks 2. GA from AUA: 8.6 wks ESTIMATED DATE OF DELIVERY: 1. JEROME from LMP: N/A 2. JEROME from AUA: 02/26/2021 US/US OB <= 14 weeks fetus IMPRESSION: 1. This is a melo gestation. 2. CRL consistent with 8.6 weeks 3. Normal ovaries Thank you very much for this referral.
== END 2020-07-23 10:03 | disposition home or self-care (01) ==
LOC: HO.US 10:02
PROVIDERS: PCP Internal Medicine; Visit Provider Advanced Practice Midwife
DX: Z36.87 Encounter for antenatal screening for uncertain dates (principal); Z34.90 Encounter for supervision of normal pregnancy, unspecified, unspecified trimester
CPT/HCPCS: 76801

== ENCOUNTER 2020-08-16 14:00 | Outpatient (REF) | payer OTHER, SELFPAY ==
[2020-08-16 15:24] LABS: MANUAL DIFF FLAG NO
[2020-08-16 15:48] LABS: Basophils Percent Auto 0.4 % (0-2); Eosinophils Absolute Auto 0.1 X10*3/uL (0.0-0.4); Hematocrit 37.7 % (37-47); Hemoglobin 12.5 g/dl (12.0-16.0); Imm Gran Abs Auto 0.02 X10*3/uL (0.00-0.03); Imm Gran Pct Auto 0.3 % (0.0-0.4); Lymphocytes Percent Auto 14.8 % (20-40); Mean Corpuscular HGB Conc 33.2 g/dl (31.0-35.0); Mean Corpuscular Hemoglobin 29.1 pg (27.0-33.0); Mean Corpuscular Volume 87.7 fL (80-98); Mean Platelet Volume 10.1 fL (9.4-12.3); Monocytes Absolute Auto 0.4 X10*3/uL (0.1-1.2); Neutrophils Absolute Auto 5.4 X10*3/uL (2.0-8.3); Neutrophils Percent Auto 78.5 % (45-73); Platelet Count 232 X10*3/uL (160-400); Red Cell Distribution Width 12.1 % (11.0-16.0); White Blood Count 6.9 X10*3/uL (4.8-10.8)
[2020-08-16 15:51] LABS: Amphetamine Screen Urine Not Detected (Not Detect); Barbiturates, Urine Not Detected (Not Detect); Benzodiazepines Screen Urine Not Detected (Not Detect); Cannabinoid Screen Urine POSITIVE (Not Detect); Cocaine Screen Urine Not Detected (Not Detect); Opiate Screen Urine Not Detected (Not Detect); Phencyclidine Screen Urine Not Detected (Not Detect)
[2020-08-16 17:38] LABS: Syphilis Screen Nonreactive (Nonreactive)
[2020-08-17 09:16] LABS: Rubella IgG Antibody 1.31 Index
[2020-08-18 08:02] LABS: HBsAGNum1 0.36 S/CO (0.00-0.99); Hepatitis B Surface Antigen Negative (Negative)
[2020-08-18 08:30] LABS: HIV AB/AG Nonreactive (Nonreactive); HIV Num 1 0.04 S/CO (0.00-0.99); ~HepC Num1 0.06 S/CO (0.00-0.79); ~Hepatitis C Antibody Nonreactive (Nonreactive)
== END 2020-08-16 14:01 | disposition home or self-care (01) ==
LOC: HO.LAB 14:00
PROVIDERS: Advanced Practice Midwife; PCP Internal Medicine; Visit Provider Advanced Practice Midwife
DX: Z34.90 Encounter for supervision of normal pregnancy, unspecified, unspecified trimester (principal)
CPT/HCPCS: 80307; 85025; 86762; 86780; 86787; 86803; 86850; 86900; 86901; 87086; 87340; 87389; 99212

== ENCOUNTER 2020-08-24 13:25 | Outpatient (REF) | payer OTHER, SELFPAY ==
[2020-08-25 09:58] LABS: CT PCR NOT DETECTED (Not Detect.); NG PCR NOT DETECTED (Not Detect.)
[2020-08-25 11:25] LABS: BV Int Neg Control Negative (Negative); BV Int Pos Control Positive (Positive)
== END 2020-08-24 13:26 | disposition home or self-care (01) ==
LOC: HO.LAB 13:25
PROVIDERS: PCP Internal Medicine; Visit Provider Advanced Practice Midwife
DX: O21.0 Mild hyperemesis gravidarum (principal); Z3A.13 13 weeks gestation of pregnancy
CPT/HCPCS: 87480; 87491; 87510; 87591; 87660; 88142; 99212

== ENCOUNTER → 2020-09-13 14:26 | Outpatient (BNVA) | payer OTHER, SELFPAY | PROVIDERS: PCP Internal Medicine; Visit Provider Advanced Practice Midwife | DX: Z34.92 Encounter for supervision of normal pregnancy, unspecified, second trimester (principal); Z36.3 Encounter for antenatal screening for malformations; Z3A.16 16 weeks gestation of pregnancy | CPT/HCPCS: 81003; 99212 ==

== ENCOUNTER → 2020-10-12 14:24 | Outpatient (BNVA) | payer OTHER, SELFPAY | PROVIDERS: PCP Internal Medicine; Visit Provider Advanced Practice Midwife | DX: Z34.92 Encounter for supervision of normal pregnancy, unspecified, second trimester (principal); Z36.3 Encounter for antenatal screening for malformations; Z3A.20 20 weeks gestation of pregnancy | CPT/HCPCS: 81003; 99212 ==

== ENCOUNTER 2020-10-15 11:28 | Outpatient (REF) | payer OTHER, SELFPAY ==
--- NOTE | ~2020-10-15 | US_ITS ---
EXAMINATION: US OBSTETRICAL CLINICAL INFORMATION: 25-year-old at 20.6 weeks of gestation Screening for anomaly COMPARISON: 07/23/2020 TECHNIQUE: Real-time transabdominal ultrasound was performed using C1-5 megahertz transducer. FINDINGS: A single, active, fetus is seen in breech presentation. The placenta is anterior without previa, and the amniotic fluid volume is wnl. MEASUREMENTS: 1. Biparietal Diameter: 4.5 cm; 19.5 wks 2. Occipital Frontal Diameter: 6.5 cm 3. Head Circumference: 17.8 cm; 20.2 wks 4. Abdominal Circumference: 14.8 cm; 20.1 wks 5. Femur Length: 3.3 cm; 20.3 wks 6. Humerus Length: 3.2 cm; 20.4 wks 7. Tibia Length: 3.0 cm; 20.6 wks 8. Ulna Length: 2.9 cm; 21.1 wks 9. Lateral ventricle: 0.6 cm 10. Cerebellum: 2.1 cm; 21.1 wks 11. Cisterna Magna: 0.75 cm 12. Nuchal Fold: 3.7 mm 13. Heart Rate: 129 beats per minute Rt ovary: normal Lt ovary: normal Cervical length 3.6 cm on T/A. GESTATIONAL AGE: 1. Established GA: 20.6 wks 2. GA from [facility]: 20.1 wks ESTIMATED DATE OF DELIVERY: 1. Established JEROME: 02/26/2021 2. JEROME from [facility]: 03/03/2021 ANATOMY: The visualized anatomy includes but not limited to: 1. Cranium: Normal 2. Intracranial anatomy: cavum septum pellucidi, lateral ventricles, choroid plexus, cerebellum, posterior fossa, third and fourth ventricles. 3. face: orbits, lip/palate, profile, nasal bone 4. Heart: four-chamber view of the heart, ventricular septum, foramen ovale, pulmonary vein, left and right outflow tracts, three-vessel view, 3 vessel trachea view, aortic and ductal arches, situs.. 5. Diaphragm: Normal 6. Abdominal wall: Normal 7. Cord Insertion: Normal 8. Spine: Cervical, thoracic, lumbar, sacral. 9. Stomach: Normal size and shape 10. Right Kidney: Normal 11. Left Kidney: Normal 12. 3 vessel cord: Normal 13. Upper extremity: Open hands, fifth digit. 14. Lower extremity: Tibia, fibula, bilateral feet. 15. Bladder: Normal 16. Genitalia: Female, patient aware. US/US OB /maternal detail IMPRESSION: 1. Single, living, intrauterine with appropriate biometry. 2. Normal survey DISCUSSION: I reviewed today's ultrasound findings. We discussed the limitations of ultrasound in diagnosing aneuploidy and other congenital abnormalities. I reviewed the differences between screening test and diagnostic test. Amniocentesis was discussed and declined. She was informed that the baseline incidence of congenital abnormalities is approximately 3-5%. Not all these conditions are diagnosable in utero. RECOMMENDATIONS: 1. Follow-up when necessary Thank you for allowing me to participate in her care. Total time 20 minutes. The time spent was devoted to counseling the patient about the disease and diagnosis, coordinating care including reviewing her records, pertinent lab data and studies, as well as discussing diagnostic evaluation and workup, plan therapeutic interventions and future disposition of care. This includes any additional research needed to obtain further information in formulating the plan of care of this patient. This note was generated with a voice recognition program. Please excuse any errors which may have been overlooked during my review of this note. Sometimes these errors may affect the content or meaning of a given sentence.
== END 2020-10-15 11:29 | disposition home or self-care (01) ==
LOC: HO.US 11:28
PROVIDERS: Visit Provider Advanced Practice Midwife
DX: Z36.3 Encounter for antenatal screening for malformations (principal); Z34.92 Encounter for supervision of normal pregnancy, unspecified, second trimester
CPT/HCPCS: 76811

== ENCOUNTER → 2020-11-09 13:31 | Outpatient (BNVA) | payer OTHER, SELFPAY | PROVIDERS: Visit Provider Advanced Practice Midwife | DX: Z34.02 Encounter for supervision of normal first pregnancy, second trimester (principal); Z3A.24 24 weeks gestation of pregnancy | CPT/HCPCS: 81003; 99212 ==

== ENCOUNTER 2020-11-18 16:00 | Outpatient (REF) | payer OTHER, SELFPAY ==
[2020-11-18 17:44] LABS: Glucose Urine UA NEG (NEG); Leukocyte Esterase Urine NEG (NEG); Nitrite Urine NEG (NEG); Specific Gravity - Urine >= 1.030 (1.005-1.025); Urine Blood NEG (NEG); Urine Ketones NEG (NEG); Urine Protein NEG (NEG-TRACE)
[2020-11-18 17:46] LABS: Appearance Urine CLEAR; Color Urine YELLOW
== END 2020-11-18 16:01 | disposition home or self-care (01) ==
LOC: HO.LAB 16:00
PROVIDERS: Visit Provider Advanced Practice Midwife
DX: O26.899 Other specified pregnancy related conditions, unspecified trimester (principal); R35.0 Frequency of micturition
CPT/HCPCS: 81003

== ENCOUNTER → 2020-12-07 13:18 | Outpatient (BNVA) | payer OTHER, SELFPAY | PROVIDERS: Visit Provider Advanced Practice Midwife | DX: Z34.03 Encounter for supervision of normal first pregnancy, third trimester (principal); Z3A.28 28 weeks gestation of pregnancy | CPT/HCPCS: 81003; 99212 ==

== ENCOUNTER → 2020-12-21 11:02 | Outpatient (BNVA) | payer OTHER, SELFPAY | PROVIDERS: Visit Provider Advanced Practice Midwife | DX: Z34.03 Encounter for supervision of normal first pregnancy, third trimester (principal); Z3A.30 30 weeks gestation of pregnancy | CPT/HCPCS: 81003; 99212 ==

== ENCOUNTER 2021-01-03 16:52 | Outpatient (REF) | payer OTHER, SELFPAY ==
[2021-01-03 18:29] LABS: Hematocrit 34.2 % (37-47); Hemoglobin 11.9 g/dl (12.0-16.0); Mean Corpuscular HGB Conc 34.8 g/dl (31.0-35.0); Mean Corpuscular Hemoglobin 30.3 pg (27.0-33.0); Mean Platelet Volume 10.4 fL (9.4-12.3); Platelet Count 207 X10*3/uL (160-400); Red Blood Count 3.93 X10*6/uL (4.20-5.50); Red Cell Distribution Width 12.5 % (11.0-16.0); White Blood Count 13.2 X10*3/uL (4.8-10.8)
[2021-01-03 18:37] LABS: Glucose 1 Hour PP 50gm Dose 67 mg/dL (60-140)
[2021-01-03 18:42] LABS: Amphetamine Screen Urine Not Detected (Not Detect); Barbiturates, Urine Not Detected (Not Detect); Benzodiazepines Screen Urine Not Detected (Not Detect); Cannabinoid Screen Urine POSITIVE (Not Detect); Cocaine Screen Urine Not Detected (Not Detect); Fentanyl, urine Not Detected (Not Detect); Opiate Screen Urine Not Detected (Not Detect); Phencyclidine Screen Urine Not Detected (Not Detect)
[2021-01-03 18:57] LABS: Glucose 1 Hour 71 mg/dL
[2021-01-03 19:03] LABS: Syphilis Screen Nonreactive (Nonreactive)
== END 2021-01-03 16:53 | disposition home or self-care (01) ==
LOC: HO.LAB 16:52
PROVIDERS: Advanced Practice Midwife; Visit Provider Advanced Practice Midwife
DX: O26.893 Other specified pregnancy related conditions, third trimester (principal); F12.11 Cannabis abuse, in remission; Z20.2 Contact with and (suspected) exposure to infections with a predominantly sexual mode of transmission
CPT/HCPCS: 36415; 80307; 82951; 85027; 86780

== ENCOUNTER → 2021-01-04 10:34 | Outpatient (BNVA) | payer OTHER, SELFPAY | PROVIDERS: Visit Provider Advanced Practice Midwife | DX: Z34.83 Encounter for supervision of other normal pregnancy, third trimester (principal); Z3A.32 32 weeks gestation of pregnancy | CPT/HCPCS: 99212 ==

== ENCOUNTER → 2021-01-19 11:37 | Outpatient (BNVA) | payer OTHER, SELFPAY | PROVIDERS: Visit Provider Advanced Practice Midwife | DX: Z34.03 Encounter for supervision of normal first pregnancy, third trimester (principal); Z3A.34 34 weeks gestation of pregnancy | CPT/HCPCS: 81003; 99212 ==

== ENCOUNTER 2021-01-28 11:03 | Outpatient (REF) | payer OTHER, SELFPAY ==
--- NOTE | ~2021-01-28 | US_ITS ---
EXAMINATION: OBSTETRICAL ULTRASOUND, Follow up HISTORY: 34-year-old at the 35.6 weeks of gestation Size less than dates COMPARISON: 10/15/2020 TECHNIQUE: Real time transabdominal imaging with color and M-mode Doppler. PRESENTATION: Vertex PLACENTA LOCATION: Anterior without previa AMNIOTIC FLUID: FABIAN 10.3 cm MEASUREMENTS: 1. Biparietal Diameter: 8.2 cm; 33.1 wks 2. Head Circumference: 30.4 cm; 34.0 wks 3. Abdominal Circumference: 29.4 cm; 33.3 wks 4. Femur Length: 6.6 cm; 34.0 wks 5. Heart Rate: 125 beats per minute WEIGHT: EFW: 2226 grams (4 lbs 15 oz) -- 6 %. BIOPHYSICAL PROFILE: Motion: 2 Tone: 2 Breathin Amniotic Fluid: 2 Total score: 8/8 UA Doppler: S/D 2.7 GESTATIONAL AGE: 1. Established GA: 35.6 wks 2. GA from AUA: 33.5 wks ESTIMATED DATE OF DELIVERY: 1. Established JEROME: 02/26/2021 2. JEROME from AUA: 03/13/2021 US/US OB velocimetry umbilical ar IMPRESSION: 1. A single active fetus is in vertex presentation 2. Size less than dates 3. Reassuring biophysical profile 4. Normal umbilical artery Doppler The EFW is consistent with the growth restriction. Informed the patient of the limitations and estimating weights. In addition majority of the fetuses whose EFW falls below 10th percentile are healthy fetuses who are constitutionally small. Recommend starting weekly nonstress test, biophysical profile, and umbilical artery Doppler evaluation (scheduled). biometry will be repeated in 2 weeks. Thank you very much for this referral. Total time 30 minutes. The time spent was devoted to counseling the patient about the disease and diagnosis, coordinating care including reviewing her records, pertinent lab data and studies, as well as discussing diagnostic evaluation and workup, plan therapeutic interventions and future disposition of care. This includes any additional research needed to obtain further information in formulating the plan of care of this patient. This note was generated with a voice recognition program. Please excuse any errors which may have been overlooked during my review of this note. Sometimes these errors may affect the content or meaning of a given sentence.
== END 2021-01-28 11:04 | disposition home or self-care (01) ==
LOC: HO.US 11:03
PROVIDERS: PCP Internal Medicine; Visit Provider Advanced Practice Midwife
DX: Z34.93 Encounter for supervision of normal pregnancy, unspecified, third trimester (principal)
CPT/HCPCS: 76816; 76820

== ENCOUNTER 2021-02-04 10:02 | Outpatient (REF) | payer OTHER, SELFPAY ==
--- NOTE | ~2021-02-04 | US_ITS ---
EXAMINATION: US OBSTETRICAL (BIOPHYSICAL PROFILE) CLINICAL INFORMATION: 25-year-old at 36.6 weeks of gestation growth restriction COMPARISON: 01/28/2021 TECHNIQUE: Biophysical profile is performed over 30 minutes with assessment of breathing, gross body movement, tone, and qualitative amniotic fluid volume. FINDINGS: POSITION: Cephalic PLACENTA: Anterior without previa AMNIOTIC FLUID INDEX: 13.0 cm CARDIAC ACTIVITY: 133 beats per minute BIOPHYSICAL PROFILE: Motion: 2 Tone: 2 Breathin Amniotic Fluid: 2 The total biophysical score is 8/8 UA Doppler showed SD ratio of 2.8 US/US OB velocimetry umbilical ar IMPRESSION: 1. Single intrauterine gestation in vertex position. 2. Reassuring BPP and FABIAN 3. Normal SD ratio in the umbilical artery Reassurance given. The fetus was slow to which she is 8 out of a BPP score. However patient reports the active movements. She has NST scheduled for next Sunday. I informed her that the as long as testing is reassuring and the fetus continues to grow, expectant management until 39 weeks of gestation is reasonable. She is to follow-up next week for repeat growth and biophysical profile. Thank you for allowing me to participate in her care. Total time 20 minutes. The time spent was devoted to counseling the patient about the disease and diagnosis, coordinating care including reviewing her records, pertinent lab data and studies, as well as discussing diagnostic evaluation and workup, plan therapeutic interventions and future disposition of care. This includes any additional research needed to obtain further information in formulating the plan of care of this patient. This note was generated with a voice recognition program. Please excuse any errors which may have been overlooked during my review of this note. Sometimes these errors may affect the content or meaning of a given sentence.
--- NOTE | ~2021-02-04 | US_ITS ---
EXAMINATION: US OBSTETRICAL (BIOPHYSICAL PROFILE) CLINICAL INFORMATION: 25-year-old at 36.6 weeks of gestation growth restriction COMPARISON: 01/28/2021 TECHNIQUE: Biophysical profile is performed over 30 minutes with assessment of breathing, gross body movement, tone, and qualitative amniotic fluid volume. FINDINGS: POSITION: Cephalic PLACENTA: Anterior without previa AMNIOTIC FLUID INDEX: 13.0 cm CARDIAC ACTIVITY: 133 beats per minute BIOPHYSICAL PROFILE: Motion: 2 Tone: 2 Breathin Amniotic Fluid: 2 The total biophysical score is 8/8 UA Doppler showed SD ratio of 2.8 US/US OB biophysical profile IMPRESSION: 1. Single intrauterine gestation in vertex position. 2. Reassuring BPP and FABIAN 3. Normal SD ratio in the umbilical artery Reassurance given. The fetus was slow to which she is 8 out of a BPP score. However patient reports the active movements. She has NST scheduled for next Sunday. I informed her that the as long as testing is reassuring and the fetus continues to grow, expectant management until 39 weeks of gestation is reasonable. She is to follow-up next week for repeat growth and biophysical profile. Thank you for allowing me to participate in her care. Total time 20 minutes. The time spent was devoted to counseling the patient about the disease and diagnosis, coordinating care including reviewing her records, pertinent lab data and studies, as well as discussing diagnostic evaluation and workup, plan therapeutic interventions and future disposition of care. This includes any additional research needed to obtain further information in formulating the plan of care of this patient. This note was generated with a voice recognition program. Please excuse any errors which may have been overlooked during my review of this note. Sometimes these errors may affect the content or meaning of a given sentence.
== END 2021-02-04 10:03 | disposition home or self-care (01) ==
LOC: HO.US 10:02
PROVIDERS: PCP Internal Medicine; Visit Provider Advanced Practice Midwife
DX: O36.5930 Maternal care for other known or suspected poor fetal growth, third trimester, not applicable or unspecified (principal); Z3A.36 36 weeks gestation of pregnancy
CPT/HCPCS: 59025; 76819; 76820; 81003; 99212

== ENCOUNTER 2021-02-04 11:20 | Outpatient (REF) | payer OTHER, SELFPAY ==
[2021-02-04 16:34] LABS: CT PCR NOT DETECTED (Not Detect.); NG PCR NOT DETECTED (Not Detect.)
== END 2021-02-04 11:21 | disposition home or self-care (01) ==
LOC: HO.LAB 11:20
PROVIDERS: Visit Provider Advanced Practice Midwife
DX: Z34.93 Encounter for supervision of normal pregnancy, unspecified, third trimester (principal)
CPT/HCPCS: 87081; 87147; 87491; 87591

== ENCOUNTER → 2021-02-08 13:50 | Outpatient (BNVA) | payer OTHER, SELFPAY | PROVIDERS: Visit Provider Obstetrics & Gynecology | DX: O36.5930 Maternal care for other known or suspected poor fetal growth, third trimester, not applicable or unspecified (principal); Z3A.37 37 weeks gestation of pregnancy | CPT/HCPCS: 59025; 99212 ==

== ENCOUNTER 2021-02-11 09:30 | Outpatient (REF) | payer OTHER, SELFPAY ==
--- NOTE | ~2021-02-11 | US_ITS ---
EXAMINATION: OBSTETRICAL ULTRASOUND, Follow up HISTORY: 25-year-old at the 37.6 weeks of gestation growth restriction COMPARISON: 02/04/2021 TECHNIQUE: Real time transabdominal imaging with color and M-mode Doppler. PRESENTATION: Vertex PLACENTA LOCATION: Anterior without previa AMNIOTIC FLUID: FABIAN 7.7 cm MEASUREMENTS: 1. Biparietal Diameter: 8.9 cm; 36.1 wks 2. Head Circumference: 31.4 cm; 35.2 wks 3. Abdominal Circumference: 30.9 cm; 34.6 wks 4. Femur Length: 6.9 cm; 35.3 wks 5. Heart Rate: 133 beats per minute WEIGHT: EFW: 2609 grams (5 lbs 12 oz) -- 7 %. BIOPHYSICAL PROFILE: Motion: 2 Tone: 2 Breathin Amniotic Fluid: 2 Total score: 8/8 UA Doppler: S/D3.2 GESTATIONAL AGE: 1. Established GA: 37.6 wks 2. GA from AUA: 35.3 wks ESTIMATED DATE OF DELIVERY: 1. Established JEROME: 02/26/2021 2. JEROME from AUA: 03/15/2021 US/US OB velocimetry umbilical ar IMPRESSION: 1. A single active fetus is in vertex presentation 2. Size less than dates, EFW corresponds to 7th percentile. However compared to prior exam, this represents an appropriate interval growth 3. Reassuring testing 4. Normal SD in the umbilical artery I informed the patient that there has been an appropriate interval growth. We reviewed the limitations of ultrasound and estimating weights. In addition we discussed the clinical significance of the EFW percentile ranking. Given that the testing is reassuring and the fetus has grown appropriately, I suggest continuing NST 2 times per week with weekly biophysical profile and Doppler evaluation until approximately 39 weeks of gestation. Total time 30 minutes. The time spent was devoted to counseling the patient about the disease and diagnosis, coordinating care including reviewing her records, pertinent lab data and studies, as well as discussing diagnostic evaluation and workup, plan therapeutic interventions and future disposition of care. This includes any additional research needed to obtain further information in formulating the plan of care of this patient. This note was generated with a voice recognition program. Please excuse any errors which may have been overlooked during my review of this note. Sometimes these errors may affect the content or meaning of a given sentence.
== END 2021-02-11 09:31 | disposition home or self-care (01) ==
LOC: HO.US 09:30
PROVIDERS: PCP Internal Medicine; Visit Provider Advanced Practice Midwife
DX: O36.5930 Maternal care for other known or suspected poor fetal growth, third trimester, not applicable or unspecified (principal); Z3A.37 37 weeks gestation of pregnancy
CPT/HCPCS: 76816; 76820

== ENCOUNTER → 2021-02-15 08:50 | Outpatient (BNVA) | payer OTHER, SELFPAY | PROVIDERS: Visit Provider Obstetrics & Gynecology | DX: O36.5930 Maternal care for other known or suspected poor fetal growth, third trimester, not applicable or unspecified (principal); Z3A.38 38 weeks gestation of pregnancy | CPT/HCPCS: 59025; 99212 ==